=== PATIENT | male | born 1970 ===

== ENCOUNTER 2019-12-20 20:01 | Emergency (ER) | payer SELFPAY ==
[2019-12-20] MEDS ORDERED: ASPIRIN 325 MG TAB PO ONE (20:12)
--- NOTE | 2019-12-20 20:40 | XRay Report ---
CHEST 2 VIEWS 2029 INDICATION / CLINICAL INFORMATION: Chest Pain COMPARISON: None available. FINDINGS: SUPPORT DEVICES: None. HEART / MEDIASTINUM: No significant abnormality. LUNGS / PLEURA: No significant pulmonary or pleural abnormality. No pneumothorax. ADDITIONAL FINDINGS: No significant additional findings. IMPRESSION: No significant acute abnormality Signer Name: Jd Orellana MD Signed: 12/20/2019 8:35 PM Workstation Name: [id number]
[2019-12-20 21:15] LABS: Basophils # (Auto) 0.1 K/mm3 (0.0-0.1); Eosinophils % (Auto) 0.5 % (0.0-4.3); Hematocrit 41.8 % (35.5-45.6); Hemoglobin 14.6 gm/dl (11.8-15.2); Lymphocytes # (Auto) 2.8 K/mm3 (1.2-5.4); Lymphocytes % (Auto) 33.2 % (13.4-35.0); Mean Corpuscular HGB Conc 35 % (32-34); Mean Corpuscular Volume 95 fl (84-94); Monocytes # (Auto) 0.6 K/mm3 (0.0-0.8); Monocytes % (Auto) 6.5 % (0.0-7.3); Platelet Count 238 K/mm3 (140-440); Red Cell Distribution Width 12.6 % (13.2-15.2)
[2019-12-20 21:24] LABS: BUN/Creatinine Ratio 24; Blood Urea Nitrogen 12 mg/dL (9-20); Calcium 9.6 mg/dL (8.4-10.2); Hemolysis Index 19
[2019-12-20 21:53] LABS: Bilirubin,Urine NEG (Negative); Blood,Urine NEG (Negative); Color,Urine Straw (Yellow); Mucus,Urine FEW /HPF; Protein,Urine <15 mg/dL mg/dL (Negative); Urobilinogen,Urine < 2.0 mg/dL (<2.0); WBC,Urine < 1.0 /HPF (0.0-6.0)
[2019-12-20 22:01] LABS: Benzodiazepines Screen,Urine PRESUMPTIVE NEGATIVE; Cannabinoid Screen,Urine PRESUMPTIVE NEGATIVE; Methadone Screen,Urine PRESUMPTIVE NEGATIVE; Opiate Screen,Urine PRESUMPTIVE NEGATIVE
[2019-12-20 22:13] LABS: Amphetamine Screen,Urine PRESUMPTIVE POSITIVE; Cocaine Screen,Urine PRESUMPTIVE POSITIVE
[2019-12-20 22:30] LABS: Alanine Aminotransferase 113 units/L (7-56); Albumin 4.5 g/dL (3.9-5); BUN/Creatinine Ratio 24; Blood Urea Nitrogen 12 mg/dL (9-20); Calcium 9.6 mg/dL (8.4-10.2); Hemolysis Index 34
--- NOTE | 2019-12-20 22:59 | Emergency Department Report ---
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 Patient states the pain is located the left side of his chest and describes it as sharp in nature without radiation. Patient states he has a history of diabetes has not take any medications in over 2 years. Patient complains of a lesion to his left second toe. Patient also reports having suicidal thoughts and depression due to life stressors. The stressors include issues with his family. Patient did attempt a suicide attempt couple weeks ago by taking unknown amount drugs. -: Gradual Location: chest Severity scale (0 -10): 4 Quality: aching Consistency: constant Improves with: none Worsens with: none Associated Symptoms: denies other symptoms Treatments Prior to Arrival: none - Related Data Home Medications Medication Instructions Recorded Confirmed Last Taken No Known Home Medications [No 12/20/19 12/20/19 Unknown Reported Home Medications] Allergies Allergy/AdvReac Type Severity Reaction Status Date / Time No Known Allergies Allergy Verified 12/20/19 20:03 ED Review of Systems ROS: Stated complaint: CHEST BACK AND TOE PAIN Other details as noted in HPI Constitutional: denies: chills, fever Eyes: denies: eye pain, eye discharge, vision change ENT: denies: ear pain, throat pain Respiratory: denies: cough, shortness of breath, wheezing Cardiovascular: chest pain. denies: palpitations Endocrine: no symptoms reported Gastrointestinal: denies: abdominal pain, nausea, diarrhea Genitourinary: denies: urgency, dysuria Musculoskeletal: denies: back pain, joint swelling, arthralgia Skin: denies: rash, lesions Neurological: denies: headache, weakness, paresthesias Psychiatric: suicidal thoughts. denies: anxiety, depression, auditory hallucinations, visual hallucinations, homicidal thoughts Hematological/Lymphatic: denies: easy bleeding, easy bruising ED Past Medical Hx - Past Medical History Previous Medical History?: Yes Hx Diabetes: Yes - Surgical History Past Surgical History?: No - Social History Smoking Status: Current Every Day Smoker Substance Use Type: Alcohol - Medications Home Medications: Home Medications Medication Instructions Recorded Confirmed Last Taken Type No Known Home Medications [No 12/20/19 12/20/19 Unknown History Reported Home Medications] ED Physical Exam - General Limitations: Language Barrier General appearance: alert, in no apparent distress - Head Head exam: Present: atraumatic, normocephalic - Eye Eye exam: Present: normal appearance, PERRL, EOMI - ENT ENT exam: Present: mucous membranes moist - Neck Neck exam: Present: normal inspection - Respiratory Respiratory exam: Present: normal lung sounds bilaterally. Absent: respiratory distress, wheezes, rales - Cardiovascular Cardiovascular Exam: Present: normal rhythm, tachycardia. Absent: systolic murmur, diastolic murmur, rubs, gallop - GI/Abdominal GI/Abdominal exam: Present: soft, normal bowel sounds, other (Patient has a lesion to the left second toe and an abrasion between the thumb and index finger right hand). Absent: distended, tenderness - Rectal Rectal exam: Present: deferred - Extremities Exam Extremities exam: Present: normal inspection - Back Exam Back exam: Present: normal inspection - Neurological Exam Neurological exam: Present: alert, oriented X3, CN II-XII intact. Absent: motor sensory deficit - Psychiatric Psychiatric exam: Present: normal affect, depressed, suicidal ideation. Absent: homicidal ideation - Skin Skin exam: Present: warm, dry, intact, normal color. Absent: rash ED Course Vital Signs 12/20/19 12/20/19 12/20/19 20:04 21:00 21:11 Temperature 98.0 F Pulse Rate 108 H 102 H Respiratory 18 15 15 Rate Blood Pressure 171/99 164/97 O2 Sat by Pulse 97 99 99 Oximetry 12/20/19 12/20/19 12/20/19 21:30 22:00 22:30 Temperature Pulse Rate 97 H 95 H 95 H Respiratory 29 H 15 11 L Rate Blood Pressure 155/95 162/95 145/93 O2 Sat by Pulse 99 93 99 Oximetry ED Medical Decision Making - Lab Data Result diagrams: 12/20/19 20:33 12/20/19 21:24 - EKG Data -: EKG Interpreted by Ok EKG shows normal: sinus rhythm Rate: tachycardia - Radiology Data Radiology results: report reviewed - Medical Decision Making The abrasion to the right hand and the wounds of the second toe of the left foot are noninfectious in nature 1013 applied Medically cleared Critical care attestation.: If time is entered above; I have spent that time in minutes in the direct care of this critically ill patient, excluding procedure time. ED Disposition Clinical Impression: Chest pain, Suicidal behavior Disposition: [id number]/TX-[id number] PSY HOSP/PSY UNIT Is pt being admited?: No Does the pt Need Aspirin: No Condition: Stable Instructions: Chest Pain (ED) Referrals: PRIMARY CARE, [Primary Care Provider] - 3-5 Days
--- NOTE | 2019-12-21 10:53 | Consultation ---
History of Present Illness - Reason for Consult Consult date: 12/21/19 Reason for consult: suicidal ideation two weeks ago - History of Present Psychiatric Illness Trey Fisher is a 49y/o male patient who came into the ER for chest pain. 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 He is dressed appropriately. He is a/o x 3. He is polite, calm and cooperative. He says he "took cocaine two weeks ago and had suicidal thoughts then." He denies any other drug use, although being positive for amphetamines. The patient denies SI/HI at present or any passive thoughts of dying. He denies any past psychiatric history or past suicide attempts, stating, "I had thoughts of suicide but was not trying to kill." He denies ever being on any psychiatric medications. He denies hallucinations of any kind. The patient says his mood is "good." He denies any fear or feelings of endangerment with being discharged home. PAST PSYCHIATRIC HISTORY: Diagnoses: Denies Suicide attempts or Self-harm behavior: Denies, states only thoughts Prior psychiatric hospitalizations: Denies Substance Abuse history: Denies Previous psychiatric medications tried: Denies Outpatient treatment: Denies PAST MEDICAL HISTORY: None reported Family Psychiatric History None reported SOCIAL HISTORY Marital Status: Living Arrangements: With spouse Employment Status: Employed Access to guns/weapons: Denied Education: 6th grade History of Abuse: Denies Legal History: Denies ROS: Constitutional: Negative for weight loss ENT: Negative for stridor Respiratory: Negative for cough or hemoptysis All other systems reviewed and are negative MSE Appearance: Dressed appropriately, good eye contact Behavior: polite, calm and cooperative Mood: "good" Affect: Congruent Thought Process: goal directed Speech: normal tone and pace Thought Content Suicidal: Denies Homicidal: Denies Hallucinations: Denies Delusions: Denies Consciousness: Alert Cognition/Memory: Good Insight/Judgment: Limited Diagnoses: Diagnoses: Polysubstance Use Disorder Plan D/C 1013 No scripts given Sitter: Defer to primary Medical: Per primary Disposition: The patient does not meet the requirement for acute inpatient treatment. He may discharge home once medically cleared. The patient understands that if suicidal thoughts or any feels of endangerment returns he is to seek assistance including, but not limited to the suicide hotline, ER and calling 911. He is to refrain from any illicit drug use or alcohol. Follow up with outpatient psychiatry or primary doctor in 7 to 14 days The patient verbalizes understanding and agreement of the treatment plan Will sign off. Please call with any questions or concerns. Thank you for this consult. Medications and Allergies Allergies Allergy/AdvReac Type Severity Reaction Status Date / Time No Known Allergies Allergy Verified 12/20/19 20:03 Home Medications Medication Instructions Recorded Confirmed Last Taken Type No Known Home Medications [No 12/20/19 12/20/19 Unknown History Reported Home Medications] Mental Status Exam - Vital signs Last Vital Signs Temp 97.4 F L 12/21/19 07:10 Pulse 83 12/21/19 09:30 Resp 22 12/21/19 09:30 BP 125/76 12/21/19 09:30 Pulse Ox 94 12/21/19 09:30 Results Result Diagrams: 12/20/19 20:33 12/20/19 21:24 Abnormal lab results 12/20/19 12/20/19 12/20/19 Range/Units 20:21 20:33 20:33 MCV 95 H (84-94) fl MCH 33 H (28-32) pg MCHC 35 H (32-34) % RDW 12.6 L (13.2-15.2) % Sodium 136 L (137-145) mmol/L Chloride 96.2 L (98-107) mmol/L Carbon Dioxide 20 L (22-30) mmol/L Creatinine 0.5 L (0.8-1.5) mg/dL Glucose 227 H (75-100) mg/dL POC Glucose 195 H (70-105) AST (5-40) units/L ALT (7-56) units/L Alkaline Phosphatase (35-129) units/L Salicylates (2.8-20.0) mg/dL Acetaminophen (10.0-30.0) ug/mL 12/20/19 12/20/19 12/20/19 Range/Units 21:24 21:24 21:24 MCV (84-94) fl MCH (28-32) pg MCHC (32-34) % RDW (13.2-15.2) % Sodium 136 L (137-145) mmol/L Chloride 97.3 L (98-107) mmol/L Carbon Dioxide 18 L (22-30) mmol/L Creatinine 0.5 L (0.8-1.5) mg/dL Glucose 198 H (75-100) mg/dL POC Glucose (70-105) AST 94 H (5-40) units/L ALT 113 H (7-56) units/L Alkaline Phosphatase 130 H (35-129) units/L Salicylates < 0.3 L (2.8-20.0) mg/dL Acetaminophen < 5.0 L (10.0-30.0) ug/mL All other labs normal.
[2019-12-21] MEDS ORDERED: SODIUM CHLORIDE 0.9% 1000 ML 1,000 ML IV ONE (13:18)
[2019-12-21 15:26] LABS: Creatine Kinase MB 1.3 ng/mL (0.0-4.0)
[2019-12-21 15:27] LABS: BUN/Creatinine Ratio 26; Blood Urea Nitrogen 13 mg/dL (9-20); Calcium 9.3 mg/dL (8.4-10.2); Hemolysis Index 7
[2019-12-21 17:55] VITALS: BP 131/85
== END 2019-12-21 17:20 ==
LOC: ED 20:01
DX: R07.9 Chest pain, unspecified (principal); R45.851 Suicidal ideations; M79.675 Pain in left toe(s); F32.9 Major depressive disorder, single episode, unspecified; E11.9 Type 2 diabetes mellitus without complications; F17.200 Nicotine dependence, unspecified, uncomplicated
CPT/HCPCS: 36415; 71046; 80048; 80053; 80307; 81001; 82550; 82553; 82962; 84484; 85025; 93005; 99285; J7030; 80320; G0480